=== PATIENT | female | born 1945 | race Caucasian/White ===

== ENCOUNTER → 2020-11-21 14:05 | Outpatient (BNVA) | payer MEDICARE, OTHER, SELFPAY | PROVIDERS: Family Provider Nurse Practitioner; PCP Nurse Practitioner Family; Visit Provider Nurse Practitioner Family | DX: R25.2 Cramp and spasm (principal); Z13.6 Encounter for screening for cardiovascular disorders; H10.30 Unspecified acute conjunctivitis, unspecified eye; H00.014 Hordeolum externum left upper eyelid; M25.552 Pain in left hip; G89.29 Other chronic pain | CPT/HCPCS: 80053; 80061; 82306; 82607; 83735; 85025 ==

== ENCOUNTER 2021-12-19 14:23 | Emergency (ER) | payer MEDICARE, SELFPAY ==
[2021-12-19 14:35] VITALS: BP 110/75; PULSE 96; RESP 18; TEMP 36.5; O2SAT 98; BMI 24.6
--- NOTE | 2021-12-19 15:00 | CTR_ITS ---
PROCEDURE INFORMATION: Exam: CT Head Without Contrast Exam date and time: 12/19/2021 5:14 PM Age: 76 years old Clinical indication: Syncope and collapse TECHNIQUE: Imaging protocol: Computed tomography of the head without contrast. Radiation optimization: All CT scans at this facility use at least one of these dose optimization techniques: automated exposure control; mA and/or kV adjustment per patient size (includes targeted exams where dose is matched to clinical indication); or iterative reconstruction. COMPARISON: No relevant prior studies available. RADIATION DOSE METRICS: Total DLP (mGy-cm): 1065.58 FINDINGS: Brain: Normal. No hemorrhage. Unremarkable white matter. No mass effect. Cerebral ventricles: No ventriculomegaly. Paranasal sinuses: Visualized sinuses are unremarkable. No fluid levels. Mastoid air cells: Visualized mastoid air cells are well aerated. Bones/joints: Unremarkable. No acute fracture. Soft tissues: Unremarkable. CT/CT head wo con* [id number] IMPRESSION: No acute intracranial abnormality.
--- NOTE | 2021-12-19 15:00 | XRR_ITS ---
PROCEDURE INFORMATION: Exam: XR Chest Exam date and time: 12/19/2021 3:23 PM Age: 76 years old Clinical indication: Other: Syncope TECHNIQUE: Imaging protocol: Radiologic exam of the chest. Views: 1 view. COMPARISON: CR XR chest 1V [id number] 04/23/2016 3:37 PM FINDINGS: Lungs: Unremarkable. No consolidation. Pleural spaces: Unremarkable. No pleural effusion. No pneumothorax. Heart/Mediastinum: A lobulated lymph node is seen in the subcarinal region stable since prior. No cardiomegaly. Bones/joints: Unremarkable. Electronic device is seen in the projection of the left chest. Likely outside of the patient. XR/XR chest 1V portable [id number] IMPRESSION: No acute findings.
--- NOTE | 2021-12-19 15:01 | ECG_ITS ---
[facility] Test Date: 2021-12-19 Pat Name: Jennifer Rueda Department: Room: Gender: Female Relaster: : 1945 Requested By: Julianna Abad Order Number: [id number] Judith MD: Cait Deshpande M.D. Measurements Intervals [place] Rate: 81 P: 61 OK: 144 QRS: 14 QRSD: 96 T: 46 QT: 407 QTc: 473 Interpretive Statements SINUS RHYTHM No previous ECG available for comparison Electronically Signed On 12-19-2021 18:00:40 CDT by Cait Deshpande M.D. [id number]
[2021-12-19 15:10] LABS: Basophils % 0.5 %; Eosinophils # 0.2 10^3/uL (0.0-0.8); Eosinophils % 2.7 %; Hematocrit 40.4 % (37.0-47.0); Hemoglobin 13.3 g/dL (11.5-15.3); Lymphocytes # 2.9 10^3/uL (0.8-4.8); Mean Corpuscular HGB Conc 32.9 g/dL (30.0-36.0); Mean Corpuscular Hemoglobin 30.9 pg (28.0-34.0); Mean Corpuscular Volume 93.7 fl (81-99); Mean Platelet Volume 11.8 fL (7.4-10.4); Monocytes # 0.4 10^3/uL (0.2-0.9); Monocytes % 5.1 %; Neutrophils # 4.54 10^3/uL (1.8-7.7); Neutrophils % 55.6 %; Nucleated Red Blood Cells % 0 %; Platelet Count 232 10^3/cmm (130-400); Red Blood Count 4.31 10^6/uL (4.1-5.3); Red Cell Distribution Width 13.5 % (12.1-15.1); White Blood Count 8.2 10^3/uL (4.0-10.0)
[2021-12-19 15:20] LABS: Anion Gap 17.3 (5-19); Blood Urea Nitrogen 14 mg/dL (8-23); Calcium 9.7 mg/dL (8.5-10.5); Carbon Dioxide 22 mmol/L (22-29); Chloride 101 mmol/L (98-107); Glucose 108 mg/dL (65-115); Osmolality Calculated 283 mOsm/kg (285-295); Potassium 4.3 mmol/L (3.5-5.1); Sodium 136 mmol/L (136-145)
[2021-12-19 15:26] LABS: Troponin(5th) Baseline 10 ng/L (0-10)
[2021-12-19 17:29] LABS: Troponin 5 2HR 8.67 ng/L (0-10)
[2021-12-19 17:49] LABS: Troponin 5 2HR Delta -1.33 ABS# (0-10)
--- NOTE | 2021-12-19 18:36 | ED_ITS ---
HPI - General Adult General: Chief complaint: Dizziness Stated complaint: SYNCOPAL EPISODE Time Seen by Provider: 12/19/21 18:34 History of Present Illness: Patient is 76-year-old female with history of COPD, GERD who recently had a Holter monitor that was placed earlier today presenting to emergency room for an episode of near syncope. Patient tells me that she had her Holter monitor placed around 12:00. At 1:45 PM, patient was shopping at [employer] when she felt very lightheaded almost passed out. Patient denies LOC or injury. Patient will let her self down to the ground. This episode lasted for a minute or 2 and the patient was able to get up. Patient denies any focal weakness in the arms or legs, chest pain, shortness of breath or chest palpitation this time. Patient has no complaints of focal neurological deficit during this episode. Patient tells me that her Holter monitor was on today. Patient had recently had a Holter monitor for place for fluctuating blood pressure. Patient denies any fevers or chills, cough, runny nose sore throat diarrhea/melena/hematochezia. Patient reports decreased water intake. Onset:1:45pm Duration:once Location:home Severity:moderate Associated symptoms: Deny chest pain, dyspnea, nausea, rash, palpitations or vomiting Review of Systems Const: Denies: fever(s) or chills Eyes: Denies: change in vision ENMT: Denies: mouth pain Card: Denies: chest pain or palpitations Resp: Denies: dyspnea or non-productive cough GI: Denies: abdominal pain, nausea, vomiting or diarrhea : Denies: dysuria Musc: Denies: extremity pain Skin/Breast: Denies: rash or new lesions Neuro: Reports: other (+light-headedness); Denies: weakness in extremities Psych: Reports: other (Normal mood) Alejandro/Lymph: Denies: easy bruising PFSH ED PFSH: Medical History COPD (chronic obstructive pulmonary disease) Hx of gastroesophageal reflux (GERD) Panic disorder Surgical History Hx of hysterectomy Family History Father , age 42; lung Cancer Mother Heart disease Family/Other Diabetes Chronic kidney disease (CKD) Social History Smoking and tobacco status: former smoker Second hand smoke exposure: Yes Alcohol intake: never Caregiver/support person: Yes Lives independently: Yes Household members: spouse Housing: House Marital status: service: No Current occupational status: retired History of recent travel: No Current gender identity: Female Special jackie needs: No Agree to transfusion: Yes Physical Exam Const: COMMON NORMALS: alert HENMT: COMMON NORMALS: atraumatic HEAD & SCALP: atraumatic MOUTH: moist mucous membranes not abnormal Eye: COMMON NORMALS: EOMs intact bilaterally and conjunctivae normal CONJUN CTIVA: Yes conjunctivae normal Neck/C-Spine: COMMON NORMALS: full ROM and supple Resp: COMMON NORMALS: normal respiratory effort and clear to auscultation bilaterally AUSCULTATION: clear to auscultation bilaterally Cardio: COMMON NORMALS: regular rate RATE: regular rate GI: COMMON NORMALS: Soft to palpation and non-tender PALPATION: Yes Soft to palpation Extremity: COMMON NORMALS: full ROM Neuro: SENSORIUM/ORIENTATION: Yes alert MOTOR EXAM: No Abnormal motor strength present and Other motor observations present (no focal motor deficits) OTHER: Mental status? Awake, alert, and oriented to self, year, month, location, and situation.? Following simple axial and appendicular commands.? Has appropriate fund of knowledge, comprehension, and insight.? Able to recall and understands pertinent aspects of medical history and current treatment status.? ? Language? Speech is fluent without word-finding difficulties.? Intact naming, expression, outpatient receptionist, and repetition.? ? Cranial nerves? 2,3,4,6: PERRL, EOMI with no nystagmus. 5: Intact sensation to light touch, symmetric? 7: Smile symmetrical, no facial droop.? 8: Hearing grossly intact.? 9,10: Normal palate movement.? 11: Normal strength in trapezius bilaterally 12: Tongue protrudes midline.? ? Motor examination? Normal bulk & tone. Strength as follows (R/L): Delts (5/5), Biceps (5/5), Triceps (5/5), Wrist ext (5/5), hip flexors (5/5), plantarflexors (5/5), dorsiflexors (5/5). ? Sensation? Light Touch: Grossly intact and equal in upper and lower extremities bilaterally? Romberg: Negative.? Distal joint position sense intact ? Coordination? Ebgavp-ck-qgcq-finger movements intact without dysmetria or past-pointing.? Rapid fingertaps: preserved amplitude without decriment.? No tremor, myoclonus or truncal ataxia.? ? Gait/stance? Steady, normal narrow base gait with appropriate arm swing and turning.? Tandem gait without hesitation or loss of balance. Psych: COMMON NORMALS: speech normal SPEECH: Yes normal speech MOOD & AFFECT: Yes euthymic mood Course Vital Signs: Vital signs: Vital Signs Temperature 97.7 F 12/19/21 14:35 Pulse Rate 79 12/19/21 19:58 Respiratory Rate 17 12/19/21 19:58 Blood Pressure 154/79 12/19/21 19:58 Pulse Oximetry 99 12/19/21 19:58 Oxygen Delivery Me thod 12/19/21 19:58 MDM - General Adult Medical Decision Making Patient is 76-year-old female with history of COPD, GERD who recently had a Holter monitor that was placed earlier today presenting to emergency room for an episode of near syncope earlier today. On exam, patient is hemodynamically stable,. There is no focal neurological deficit. Patient has no complaints of chest pain, shortness of palpitation or lightheadedness. EKG not showing signs of blocks, WPW, Brugada, HOCM, or QT prolongation. Troponin x2 within normal limit today. We attempted to review the Holter monitor however upon contacting the device rep, we were told until the device is returned, we will not be able to see transplant. This time, it is unclear whether patient had any dysrhythmia earlier today which could explain patient's near syncope. I have performed shared decision making with patient for admission vs discharge with close outpatient followup. On reassessment, patient denies any syncope or near syncope episodes in the ER. Telemetry without any dysrhythmia. Patient has been able to tolerate PO and ambulate in the ER without issues. Delta troponin <4. I performed shared decision-making with patient regarding admission versus discharge today, and patient prefers to be discharged. Given her age and that we cannot obtain holter tracing currently, I recommended admision. However, patient elects to go home and do the stress test on Saturday and Saturday. I explained the risks of leaving the hospital today including lethal arrhythmia, [place], strokens and even . Patient verbalizes understanding of these discussed risk and elect for the alternative of following up earlier next week for evaluation by Cardiology. Patient verbalizes understanding to return for any worsening symptoms including additional syncope/presyncope, chest pain, dyspnea, fatigue, arm pain/jaw pain/back pain or any new or concerning issues. I have given patient follow up with our special education case manager to be seen by our outpatient Cardiology for syncope. Patient aware of a call from our special education case manager to schedule for appointment(s) and verbalizes understanding of the importance of following up. I have given patient follow up with our special education case manager to be seen by PCP tomorrow to review holter activities. Patient aware of a call from our special education case manager to schedule for appointment(s) and verbalizes understanding of the importance of following up. Disposition: Discharge. Patient counseled regarding diagnostic impression, treatment plan. Patient given ED strict return precautions to return for continuation, worsening, or development of new symptoms. Instructed to f/u w/ Cardiology and PCP regarding symptoms today. Patient verbalized understanding. Lab Data : 12/19/21 14:20 12/19/21 14:20 Radiology Impressions Chest X-Ray 12/19/21 15:00 IMPRESSION: No acute findings. Head CT 12/19/21 15:00 IMPRESSION: No acute intracranial abnormality. Laboratory Results WBC 8.2 10^3/uL (4.0-10.0) 12/19/21 14:20 RBC 4.31 10^6/uL (4.1-5.3) 12/19/21 14:20 Hgb 13.3 g/dL (11.5-15.3) 12/19/21 14:20 Hct 40.4 % (37.0-47.0) 12/19/21 14:20 MCV 93.7 fl (81-99) 12/19/21 14:20 MCH 30.9 pg (28.0-34.0) 12/19/21 14:20 MCHC 32.9 g/dL (30.0-36.0) 12/19/21 14:20 RDW 13.5 % (12.1-15.1) 12/19/21 14:20 Plt Count 232 10^3/cmm (130-400) 12/19/21 14:20 MPV 11.8 fL (7.4-10.4) H 12/19/21 14:20 Neut % (Auto) 55.6 % 12/19/21 14:20 Lymph % (Auto) 36.0 % 12/19/21 14:20 Amador % (Auto) 5.1 % 12/19/21 14:20 Eos % (Auto) 2.7 % 12/19/21 14:20 Baso % (Auto) 0.5 % 12/19/21 14:20 Neut # (Auto) 4.54 10^3/uL (1.8-7.7) 12/19/21 14:20 Lymph # (Auto) 2.9 10^3/uL (0.8-4.8) 12/19/21 14:20 Amador # (Auto) 0.4 10^3/uL (0.2-0.9) 12/19/21 14:20 Eos # (Auto) 0.2 10^3/uL (0.0-0.8) 12/19/21 14:20 Baso # (Auto) 0.0 10^3/uL (0.0-0.1) 12/19/21 14:20 Nucleated RBC % (auto) 0 % 12/19/21 14:20 Nucleated RBCs # 0.0 /100WBC 12/19/21 14:20 Sodium 136 mmol/L (136-145) 12/19/21 14:20 Potassium 4.3 mmol/L (3.5-5.1) 12/19/21 14:20 Chloride 101 mmol/L (98-107) 12/19/21 14:20 Carbon Dioxide 22 mmol/L (22-29) 12/19/21 14:20 Anion Gap 17.3 (5-19) 12/19/21 14:20 BUN 14 mg/dL (8-23) 12/19/21 14:20 Creatinine 1.2 mg/dL (0.5-0.9) H 12/19/21 14:20 GFR Calculation Not Reportable 12/19/21 14:20 Glucose 108 mg/dL (65-115) 12/19/21 14:20 Calculated Osmolality 283 mOsm/kg (285-295) L 12/19/21 14:20 Calcium 9.7 mg/dL (8.5-10.5) 12/19/21 14:20 Troponin T Baseline 10 ng/L (0-10) 12/19/21 14:20 Troponin T 120 Minute 8.67 ng/L (0-10) 12/19/21 16:43 Delta Troponin T -1.33 ABS# (0-10) L 12/19/21 16:43 Troponin T Hi Sens 6Hr 8.24 ng/L (0-10) 12/19/21 19:48 Troponin T Hi Sens 6Hr Delta -1.76 ng/L (0-12) L 12/19/21 19:48 Imaging Data Other Imaging: Radiologist's impression: [id number] [address] [address] Scan Report Signed Patient: Jennifer Rueda Unit #: [id number] : 1945 Age/Sex: 76 / F ADM Date: 12/19/21 Loc: ER Room/Bed: Attending Dr: Ordering Provider/Ordering MD: Julianna Abad MD Date of Service: 12/19/21 Procedure(s): CT head wo con* [id number] Accession Number(s): [id number] Report Number: [id number] PROCEDURE INFORMATION: Exam: CT Head Without Contrast Exam date and time: 12/19/2021 5:14 PM Age: 76 years old Clinical indication: Syncope and collapse TECHNIQUE: Imaging protocol: Computed tomography of the head without contrast. Radiation optimization: All CT scans at this facility use at least one of these dose optimization techniques: automated exposure control; mA and/or kV adjustment per patient size (includes targeted exams where dose is matched to clinical indication); or iterative reconstruction. COMPARISON: No relevant prior studies available. RADIATION DOSE METRICS: Total DLP (mGy-cm): 1065.58 FINDINGS: Brain: Normal. No hemorrhage. Unremarkable white matter. No mass effect. Cerebral ventricles: No ventriculomegaly. Paranasal sinuses: Visualized sinuses are unremarkable. No fluid levels. Mastoid air cells: Visualized mastoid air cells are well aerated. Bones/joints: Unremarkable. No acute fracture. Soft tissues: Unremarkable. CT/CT head wo con* [id number] IMPRESSION: No acute intracranial abnormality. ? Dictated By: Dash Alanis Signed By: Dash Alanis Signed Date/Time: 12/19/21 1741 DD/ [address] [address] XRay Report Signed Patient: Jennifer Rueda Unit #: [id number] : 1945 Age/Sex: 76 / F ADM Date: 12/19/21 Loc: ER Room/Bed: Attending Dr: Ordering Provider/Ordering MD: Julianna Abad MD Date of Service: 12/19/21 Procedure(s): XR chest 1V portable [id number] Accession Number(s): [id number] Report Number: [id number] PROCEDURE INFORMATION: Exam: XR Chest Exam date and time: 12/19/2021 3:23 PM Age: 76 years old Clinical indication: Other: Syncope TECHNIQUE: Imaging protocol: Radiologic exam of the chest. Views: 1 view. COMPARISON: CR XR chest 1V [id number] 04/23/2016 3:37 PM FINDINGS: Lungs: Unremarkable. No consolidation. Pleural spaces: Unremarkable. No pleural effusion. No pneumothorax. Heart/Mediastinum:? A lobulated lymph node is seen in the subcarinal region stable since prior. No cardiomegaly. Bones/joints: Unremarkable. Electronic device is seen in the projection of the left chest.? Likely outside of the patient. XR/XR chest 1V portable [id number] IMPRESSION: No acute findings. ? Dictated By: Dash Alanis Signed By: Dash Alanis Signed Date/Time: 12/19/21 1542 DD/ 1523 Discharge Plan Discharge Patient Disposition: Home Clinical Impression: Light headedness Condition: Stable Prescriptions: No Action albuterol sulfate [Ventolin HFA] 90 mcg/actuation HFA aerosol inhaler 2 puff INHALATION Q6H PRN (Reason: shortness of breath or wheezing) Qty: 18 2RF albuterol sulfate 2.5 mg /3 mL (0.083 %) solution for nebulization 2.5 mg INHALATION QID PRN (Reason: shortness of breath or wheezing) Qty: 90 2RF Women's 50 Plus Daily Formula 400 mcg-500 mg calcium-20 mcg Tablet 1 tab PO DAILY Discharge Orders: Discharge ED (Routine); Ordered 12/19/21 Ordered By: Julianna Abad Referrals: Latha Luu FNP [Primary Care Provider] - Discharge Diet: Advance as tolerated Discharge Activity: Increase activity as tolerated Patient Instructions: Pain Management Activity Restrictions/Additional Instructions: Please come back to the emergency room for any more breakthrough episodes of passing out/near syncope. Come back if any weakness in her arms, drooling, difficulty speaking, any neurological symptoms, chest pain/shortness of breath/palpitation or any new or concerning issues. Please do not swim, bathe, operate heavy machinery or drive a vehicle unattended. Our special education case manager will have you follow-up with a reading professor in the next few days. You would be expected to have a phone call with our special education case manager who will put you on the schedule. You can expect a call from us in the next 2-3 days. If you don't hear from us, call us back in the emergency room at [phone]. Coding Level of Care Code ED Mercury Cell Cleaner for Chg Fwd Exam Comprehensive
[2021-12-19 19:09] VITALS: BP 109/75; BP 140/70; BP 144/79; PULSE 80; PULSE 84; PULSE 92
[2021-12-19] MEDS: sodium chloride 0.9% 1,000 ML 999 ML IV (19:56)
[2021-12-19 19:58] VITALS: BP 154/79; PULSE 79; RESP 17; O2SAT 99
[2021-12-19 20:21] LABS: Troponin 5 6HR 8.24 ng/L (0-10)
[2021-12-19 20:28] LABS: Troponin 5 6HR Delta -1.76 ng/L (0-12)
[2021-12-19 21:52] VITALS: BP 136/79; PULSE 82; RESP 16; O2SAT 99
--- NOTE | 2021-12-20 10:41 | DCPLANNER ---
Addendum entered by Jaclyn Coates 04/06/22 14:09: Patient had a follow up appointment scheduled with heart care - patient did attend appointment. Addendum entered by Jaclyn Coates 12/20/21 14:59: Patient has a follow up appointment scheduled for , February 22, 2022 at 3:[address] Clarke at [facility]. Clinic will call patient with appointment information. Original Note: craps manager had message to schedule a follow up appointment for patient with cardiology. craps manager sent patients information to the front office staff at [facility]. Patients information will be printed and reviewed. Clinic will call patient with appointment information.
== END 2021-12-19 21:54 | disposition home or self-care (01) ==
PROVIDERS: Emergency Provider Emergency Medicine; PCP Nurse Practitioner Family
DX: R42 Dizziness and giddiness (principal); J44.9 Chronic obstructive pulmonary disease, unspecified; Z87.891 Personal history of nicotine dependence; R00.2 Palpitations
CPT/HCPCS: 36415; 70450; 71045; 80048; 84484; 85025; 93005; 93242; 96360; 99285; J7030

== ENCOUNTER → 2022-02-22 15:00 | Outpatient (BNVA) | payer MEDICARE, OTHER, SELFPAY | PROVIDERS: PCP Nurse Practitioner Family; Visit Provider Internal Medicine Cardiovascular Disease | DX: R07.9 Chest pain, unspecified (principal); R55 Syncope and collapse; J44.9 Chronic obstructive pulmonary disease, unspecified; F17.210 Nicotine dependence, cigarettes, uncomplicated | CPT/HCPCS: 93005; 99204 ==

== ENCOUNTER 2022-04-02 14:38 | Outpatient (CLI) | payer MEDICARE, OTHER, SELFPAY ==
--- NOTE | 2022-04-02 15:00 | USCV_ITS ---
Mohit Jennifer Age: 76 Gender: F : 1945 Exam Date: 04/02/2022 14:53 Ordering Phys: Estela Clarke MD ([email or web address]) Technologist: Mauro Handy Exam Location: [facility] Indication: short of breath chest pain BP: 130 / 75 HR: 91 Rhythm: Sinus Technical Quality: Adequate MEASUREMENTS (Male / Female) Normal Values 2D ECHO LV Diastolic Diameter PLAX 3.4 cm 4.2 - 5.9 / 3.9 - 5.3 cm LV Systolic Diameter PLAX 2.2 cm IVS Diastolic Thickness 1.0 cm 0.6 - 1.0 / 0.6 - 0.9 cm IVS Systolic Thickness 1.3 cm LVPW Diastolic Thickness 1.1 cm 0.6 - 1.0 / 0.6 - 0.9 cm LVPW Systolic Thickness 1.4 cm LVOT Diameter 2.0 cm LV Ejection Fraction 2D Teich 65.2 % LV Ejection Fraction MOD 2C 76.8 % LV Ejection Fraction 2C AL 78.2 % LA Diameter 3.0 cm IVC Diameter 0.9 cm M-MODE Aortic Annulus Diameter 2.6 cm LA Ao Ratio MM 1.1 MV E Point Septal Separation 0.7 cm DOPPLER AV Peak Velocity 94.0 cm/s LVOT Peak Velocity 77.0 cm/s AV Area Cont Eq vti 3.0 cm squared AV Area Cont Eq pk 2.6 cm squared MV Area PHT 5.0 cm squared Mitral E to A Ratio 0.5 MV E' Velocity 29.0 cm/s Mitral E to MV E' Ratio 5.6 Mitral E to LV E' Lateral Ratio 5.0 Mitral E to LV E' Septal Ratio 6.2 TR Peak Velocity 162.3 cm/s TR Peak Gradient 10.5 mmHg TV Peak E Velocity 56.0 cm/s Right Atrial Pressure 3.0 mmHg Pulmonary Artery Systolic Pressu 13.5 mmHg PV Peak Velocity 74.0 cm/s FINDINGS Left Ventricle Normal left ventricular size and systolic function, EF 78 %. Mild left ventricular hypertrophy. Relative hypokinesia of the basal inferior wall segment.Grade I/IV diastolic dysfunction (abnormal relaxation filling pattern), normal to mildly elevated filling pressures. Right Ventricle The right ventricle is normal in size and function. Right Atrium The right atrium is normal in size. Left Atrium The left atrium is normal in size. Mitral Valve Thickened mitral valve. Mild mitral annular calcification. Aortic Valve No gross abnormalities noted Tricuspid Valve No gross abnormalities noted Pulmonic Valve No gross abnormalities noted Pericardium Normal pericardium without effusion. Aorta . Normal aortic annulus size. IVC The inferior vena cava appears normal. CONCLUSIONS Normal left ventricular size and systolic function, EF 78 %. Mild left ventricular hypertrophy. Relative hypokinesia of the basal inferior wall segment.Grade I/IV diastolic dysfunction (abnormal relaxation filling pattern), normal to mildly elevated filling pressures. Wall motion abnormality as mentioned above Thickened mitral valve. Mild mitral annular calcification. There is no pericardial effusion. There are no intracardiac masses. No similar previous studies are available for comparison Dr Estela Clarke MD [facility] (Electronically Signed) Final Date: 03 April 2022 18:00 S
== END 2022-04-02 14:39 | disposition home or self-care (01) ==
PROVIDERS: PCP Nurse Practitioner Family; Visit Provider Internal Medicine Cardiovascular Disease
DX: R55 Syncope and collapse (principal); R06.02 Shortness of breath; R07.9 Chest pain, unspecified; I05.9 Rheumatic mitral valve disease, unspecified
CPT/HCPCS: 93306

== ENCOUNTER 2022-04-23 06:35 | Outpatient (CLI) | payer MEDICARE, OTHER, SELFPAY ==
--- NOTE | 2022-04-23 | ECG_ITS ---
[facility] Test Date: 2022-04-23 Pat Name: Jennifer Rueda Department: Room: Gender: Female Computer Education Teacher: : 1945 Requested By: Estela Clarke Order Number: [id number] Wong MD: Jimbo Yao M.D. Interpretive Statements NAME OF STUDY: LEXISCAN SESTAMIBI STRESS TEST INDICATION: [juarez, ] Procedure: At the baseline, the blood pressure was 133/72 mmHg with a heart rate of 73 bpm. The electrocardiogram showed normal sinus rhythm, normal axis with normal ST and T's. The Lexiscan was infused over a period of 20 seconds. A total of 0.4 mg of Lexiscan was infused. The stress phase was continued for a total of 5 minutes. Heart rate was at the end of stress phase was 85 bpm and a blood pressure of 127/76 mmHg. The EKG at the peak infusion revealed normal sinus rhythm with no significant ST-T wave changes. Sestamibi was injected 20 seconds after the Lexiscan infusion. Blood pressure at the end of recovery phase was 136/75 mmHg with a heart rate of 82 bpm. Conclusion: 1. Normal EKG response to Lexiscan infusion 2. No Lexiscan induced chest pain or cardiac arrhythmia. 3. Normal blood pressure and heart rate response. 4. Sestamibi/sestamibi perfusion scan pending; see separate report. Electronically Signed On 05-06-2022 19:48:46 QUALIFICATIONS EXAMINER by Jimbo Yao M.D. [id number]
[2022-04-23 07:22] VITALS: BMI 24.6
--- NOTE | 2022-04-23 07:24 | NMCV_ITS ---
NM maynor perf SPECT r/s* [id number] Jennifer Rueda Age: 76 Gender: F : 1945 Exam Date: 04/23/2022 08:03 Ordering Phys: Estela Clarke MD ([email or web address]) Technologist: CEDRIC Vargas Exam Location: [facility] Indications: DYSPNEA ON EXERTION STRESS TEST [facility] IMAGE PROTOCOL Rest/Stress 1 Lexiscan Day Radiopharmaceutical Dose (mCi) Administration Site Administered by Rest: Tc-99m 10.7 IV CEDRIC [place] Sestamibi Stress:Tc-99m 32.9 IV CEDRIC [place] Sestamibi Rest: 23-Apr-2022 60 Discovery 630 Stress: 23-Apr-2022 30 Discovery 630 0.4mg Lexiscan. Images obtained in supine and prone position. SPECT RESULTS Technical Quality: Excellent Raw Data Analysis: Normal Image Corrections: No attenuation or motion correction applied Summed Stress Score: 0 Summed Rest Score: 2 Summed Difference Score: 0 PERFUSION FINDINGS SPECT images demonstrate homogeneous tracer distribution throughout the myocardium. FUNCTIONAL RESULTS (calculated via Gated SPECT) Stress Image LV EF (%): 72 Stress EDV (mL):61 TID: 1.17 Stress ESV (mL):17 FUNCTIONAL FINDINGS: There is normal left ventricular systolic function. IMPRESSIONS 1. Normal myocardial perfusion imaging with no evidence of ischemia 2. LV systolic function is normal Jimbo Yao MD (Electronically Signed) Final Date: 23 April 2022 10:48 S
[2022-04-23] MEDS: regadenoson 0.4 Mg/5 ml Syringe IVP (08:34)
[2022-04-23 08:52] VITALS: BP 136/75; PULSE 84
== END 2022-04-23 06:36 | disposition home or self-care (01) ==
PROVIDERS: PCP Nurse Practitioner Family; Visit Provider Internal Medicine Cardiovascular Disease
DX: H00.014 Hordeolum externum left upper eyelid (principal); R06.09 Other forms of dyspnea
CPT/HCPCS: 36415; 78452; 93017; 96374; A9500; J2785

== ENCOUNTER → 2022-05-28 16:26 | Outpatient (BNVA) | payer MEDICARE, OTHER, SELFPAY | PROVIDERS: PCP Nurse Practitioner Family; Visit Provider Nurse Practitioner Family | DX: N39.0 Urinary tract infection, site not specified (principal) | CPT/HCPCS: 81003; 87077; 87086; 87184 ==

== ENCOUNTER → 2022-12-06 11:51 | Outpatient (BNVA) | payer MEDICARE, OTHER, SELFPAY | PROVIDERS: PCP Nurse Practitioner Family; Visit Provider Nurse Practitioner Family | DX: F41.9 Anxiety disorder, unspecified (principal); Z13.6 Encounter for screening for cardiovascular disorders | CPT/HCPCS: 80053; 80061; 82607; 83735; 84443; 85025 ==

== ENCOUNTER → 2023-07-03 15:51 | Outpatient (BNVA) | payer MEDICARE, OTHER, SELFPAY | PROVIDERS: PCP Nurse Practitioner Family; Visit Provider Nurse Practitioner Family | DX: F41.9 Anxiety disorder, unspecified (principal); J44.9 Chronic obstructive pulmonary disease, unspecified; E78.5 Hyperlipidemia, unspecified; M25.50 Pain in unspecified joint; E55.9 Vitamin D deficiency, unspecified | CPT/HCPCS: 80053; 80061; 82306; 82607; 83735; 84443; 85025; 85651; 86038; 86140; 86200; 86431 ==

== ENCOUNTER → 2024-02-24 13:31 | Outpatient (BNVA) | payer MEDICARE, OTHER, SELFPAY | PROVIDERS: PCP Nurse Practitioner Family; Visit Provider Nurse Practitioner Family | DX: R39.9 Unspecified symptoms and signs involving the genitourinary system (principal) | CPT/HCPCS: 81000; 87086 ==

== ENCOUNTER → 2024-09-22 14:29 | Outpatient (BNVA) | payer MEDICARE, OTHER, SELFPAY | PROVIDERS: PCP Nurse Practitioner Family; Visit Provider Nurse Practitioner Family | DX: R09.1 Pleurisy (principal); E55.9 Vitamin D deficiency, unspecified; E78.5 Hyperlipidemia, unspecified; F41.9 Anxiety disorder, unspecified; Z13.6 Encounter for screening for cardiovascular disorders | CPT/HCPCS: 71046; 80053; 80061; 82306; 82607; 84443; 85025 ==